=== PATIENT | female | born 1980 | race Caucasian/White ===

== ENCOUNTER 2017-08-12 20:54 | Inpatient (IN) | payer OTHER ==
[2017-08-12 21:44] VITALS: BP 134/78
[2017-08-12 21:45] VITALS: BP 159/95
[2017-08-12] MEDS ORDERED: ZOLPIDEM TARTRATE 10 MG TABLET PO PRN (21:45)
[2017-08-12] MEDS ORDERED: LORazepam 2 MG TABLET ONE (21:48)
[2017-08-12] MEDS: LORazepam 2 MG TABLET PO PRN (21:50)
[2017-08-12 21:56] VITALS: BP 159/95
[2017-08-12] MEDS ORDERED: HALOPERIDOL LACTATE 5 MG/ML VIAL IM ONE (22:30)
[2017-08-12] MEDS ORDERED: DiphenhydrAMINE HCL 50 MG/ML VIAL IM ONE (22:30)
[2017-08-12] MEDS: NICOTINE 21 MG/24 HOUR PATCH TD SCH (22:35)
[2017-08-12 22:45] VITALS: BP 110/66
[2017-08-12 23:45] VITALS: BP 114/70
[2017-08-13] VITALS (10 sets, daily range): BP systolic 115–156; BP diastolic 71–94
[2017-08-13 07:17] LABS: BASOPHILS % (AUTO) 0.6 % (0.0-2.0); HEMATOCRIT 41.9 % (36-46); HEMOGLOBIN 14.7 g/dL (12.0-16.0); LYMPHOCYTES # (AUTO) 2.4 K/uL (1.0-4.8); LYMPHOCYTES % (AUTO) 39.4 % (22.0-44.0); MEAN CORPUSCULAR HEMOGLOBIN 32.9 pg (26.0-34.0); MEAN CORPUSCULAR HGB CONC 34.9 G/dL (31.0-37.0); MEAN CORPUSCULAR VOLUME 94 fL (80-100); MONOCYTES # (AUTO) 0.5 K/uL (0.1-1.0); MONOCYTES % (AUTO) 9.1 % (2.0-9.0); NEUTROPHILS % (AUTO) 49.9 % (40.0-70.0); PLATELET COUNT (AUTO) 227 K/uL (150-450); RED BLOOD CELL COUNT(AUTO) 4.45 MIL/uL (4.00-5.20); RED CELL DISTRIBUTION WIDTH 13.9 % (11.5-14.5)
[2017-08-13 08:21] LABS: ALANINE AMINOTRANSFERASE 24 U/L (12-78); ALBUMIN 3.7 g/dL (3.4-5.0); ALKALINE PHOSPHATASE 69 U/L (46-116); ANION GAP 11 mmol/L (8-16); ASPARTATE AMINOTRANSFERASE 47 U/L (15-37); BILIRUBIN,TOTAL 0.3 mg/dL (0.1-1.0); CALCIUM, TOTAL 8.2 mg/dL (8.8-10.5); CARBON DIOXIDE 27 mmol/L (22-29); CHLORIDE 106 mmol/L (98-107); CREATININE 0.83 mg/dL (0.60-1.30); FREE T4 (FREE THYROXINE) 0.53 ng/dL (0.76-1.46); GLOMERULAR FILTR. RATE CALC > 60 mL/min (>60); GLUCOSE,RANDOM 76 mg/dL (70-110); HCG,QUANTITATIVE < 1 mIU/mL (0-6); POTASSIUM 4.2 mmol/L (3.5-5.1); SODIUM SERUM 144 mmol/L (136-145); TOTAL PROTEIN, SERUM 6.6 g/dL (6.4-8.2); UREA NITROGEN, BLOOD 10 mg/dL (7-18)
[2017-08-13] MEDS: NICOTINE 21 MG/24 HOUR PATCH TD SCH (08:44)
[2017-08-13] MEDS: LORazepam 2 MG TABLET PO PRN ×3 (08:44→17:01)
[2017-08-13] MEDS ORDERED: DiphenhydrAMINE HCL 50 MG/ML VIAL IM ONE (11:00)
[2017-08-13] MEDS: VENLAFAXINE HCL 150 MG ER CAPSULE PO SCH (12:31)
[2017-08-13] MEDS: QUEtiapine FUMARATE 25 MG TABLET PO SCH ×2 (13:14→16:32)
[2017-08-13] MEDS ORDERED: IBUPROFEN 600 MG TABLET PO PRN (13:15)
[2017-08-13] MEDS ORDERED: MAG HYDROX/AL HYDROX/SIMETH ES 30 ML SUSPENSION UDCUP PO PRN (13:15)
[2017-08-13] MEDS ORDERED: HydrOXYzine PAMOATE 50 MG CAPSULE PO PRN (13:15)
[2017-08-13] MEDS ORDERED: CloNIDine HCL 0.1 MG TABLET PO PRN (13:15)
[2017-08-13] MEDS: CloNIDine HCL 0.1 MG TABLET PO SCH ×2 (16:32→22:15)
[2017-08-13] MEDS ORDERED: QUEtiapine FUMARATE 25 MG TABLET PO SCH (17:00)
[2017-08-14 06:03] VITALS: BP 118/79
[2017-08-14 06:04] VITALS: BP 118/79
[2017-08-14] MEDS: CloNIDine HCL 0.1 MG TABLET PO SCH ×2 (06:05→11:18)
[2017-08-14] MEDS: VENLAFAXINE HCL 150 MG ER CAPSULE PO SCH (08:15)
[2017-08-14] MEDS: QUEtiapine FUMARATE 25 MG TABLET PO SCH (08:15)
[2017-08-14] MEDS: LORazepam 2 MG TABLET PO PRN (08:15)
[2017-08-14 08:18] VITALS: BP 124/92
[2017-08-14 08:41] VITALS: BP 124/92
[2017-08-14] MEDS: NICOTINE 21 MG/24 HOUR PATCH TD SCH (09:31)
[2017-08-14] MEDS ORDERED: VENL-68 PO (12:20)
[2017-08-14] MEDS ORDERED: QUET25TA PO (12:20)
[2017-08-14] MEDS ORDERED: IBUPROFEN 400 MG TABLET PO PRN (14:00)
[2017-08-14] MEDS ORDERED: ACETAMINOPHEN 325 MG TABLET PO PRN (14:00)
== END 2017-08-14 12:40 | disposition home or self-care (01) | DRG 885 ==
LOC: B3A 21:40
PROVIDERS: ADMIT Psychiatry & Neurology Psychiatry; ATTEND Psychiatry & Neurology Psychiatry
DX: F33.2 Major depressive disorder, recurrent severe without psychotic features (principal); F11.20 Opioid dependence, uncomplicated; F10.10 Alcohol abuse, uncomplicated; G47.00 Insomnia, unspecified; F41.9 Anxiety disorder, unspecified; Z71.41 Alcohol abuse counseling and surveillance of alcoholic
CPT/HCPCS: 84439; 84443; J1200; J1630; J3230